=== PATIENT | female | born 1955 | race Caucasian/White ===

== ENCOUNTER 2025-04-10 02:55 | Emergency (ER) | payer MEDICARE, SELFPAY ==
--- OUTSIDE RECORDS SUMMARY | 2025-03-07 13:00 | XMS_ITS | Encounter Summary ---
Author Organization [facility] Health Address [address] [place] [address] Care Team Providers Care Sky Cap Name Role Phone Unavailable Primary Care Provider Unavailabl e Encounter Details Date Type Department Care Team (Late st Contact Info) Description 03/07/2025 11:00 AM [facility] Office Visit [facility] [address] [place] [address] Abimael Booth, JANN [address] [place] [address] Social History Tobacco Use Types Packs/Day Years Used Date Smoking Tobacco: Former Cigarettes Alcohol Use Standard Drinks/Week Comments Yes 0 (1 standard drink = 0.6 oz pur e alcohol) Comments Unknown Sex and Gender Information Value Date Recorded Sex Assigned at Not on file Legal Sex Female 9:53 AM PDT Gender Identity Not on file Sexual Orientation Not on file documented as of this encounter Last Filed Vital Signs Vital Sign Reading Time Taken Comments Blood Pressure 129/79 03/07/2025 11:00 AM MST Pulse 70 03/07/2025 11:00 AM MST Temperature - - Respiratory Rate - - Oxygen Saturation - - Inhaled Oxygen Concentration - - Weight - - Height - - Body Mass Index - - documented in this encounter Progress Notes * Abimael Booth DMD - 03/07/2025 11:00 AM MSTSummary: Limited #9 Mrs. Vang presents for a limited exam for tooth #9. Pt CC: Pt states her filling chipped last week - reports no pain or symptoms. States she is leaving next week for the summer. Radiographs completed, Med Hx reviewed. FINDINGS: Tooth #9: MIDFL resin, chipped IFL resin, tooth, marginal leakage, staining. No PA Lesion. Tooth #8: Large resion, wear / chipped, marginal leakage. No PA lesion ALT TREATMENT OPTIONS: Do nothing Pt is leaving next week Patch resin - guarded due to size of existing resins - will require full coverage restorationism in future Core/crown #8 and #9 Pt elects for tx option and will schedule when she returns in June ARBs discussed / timeline for tx recommended and reviewed. - Mrs. Vang was informed of all clinical and radiographs findings. Treatment recommendations and ARBs discussed with pt. - The pt was informed of the importance of maintaining proper oral hygiene and continuing with recare appointments. - Pt left with all questions answered regarding treatment and in good overall health. NV: Crowns #8 and #9 SIG: Dr. Booth documented in this encounter Plan of Treatment Upcoming Encounters Date Type Department Care Team (Late st Contact Info) Description 07/07/2025 8:30 AM [facility] Office Visit [facility] [address] [facility] [place] [phone] Abimael Booth DMD [address] [facility] [place] [facility] [place] [address] 07/14/2025 1:00 PM [facility] Office Visit [facility] [address] [facility] [place] [phone] [place] [address] [facility] [place] [address] 07/14/2025 1:30 PM MST Office Visit [facility] [address] [facility] [place] [address] Abimael Booth, JANN [address] [facility] [place] [address] Scheduled Orders Name Type Priority Associated Diagnoses Order Schedule 8 8 CERECFIRED CROWN ANT Dental Procedures Routine 1 Occurrences starting 03/07/2025 9 9 CERECFIRED CROWN ANT Dental Procedures Routine 1 Occurrences starting 03/07/2025 8 8 CORE BUILDUP, INCLUDING ANY PINS WHEN REQUIRED Dental Procedures Routine 1 Occurrences starting 03/07/2025 9 9 CORE BUILDUP, INCLUDING ANY PINS WHEN REQUIRED Dental Procedures Routine 1 Occurrences starting 03/07/2025 8 8 CEMENT CROWN Dental Procedures Routine 1 Occurrences starting 03/07/2025 9 9 CEMENT CROWN Dental Procedures Routine 1 Occurrences starting 03/07/2025 NC X-RAY Dental Procedures Routine 1 Occur rences starting 03/07/2025 documented as of this encounter Procedures Procedure Name Priority Date/Time Associated Diagnosis Comments SINGLE X-RAY Routine 03/07/2025 11:00 AM MST LIMITED ORAL EVALUATION - PROBLEM FOCUSED Routine 03/07/2025 11:00 AM MST documented in this encounter Visit Diagnoses Not on filedocumented in this encounter
--- OUTSIDE RECORDS SUMMARY | 2025-04-10 02:57 | XMS_ITS | Encounter Summary ---
Author Organization [facility] Health Address [address] [place] [address] Care Team Providers Care Dispatch Officer Name Role Phone Unavailable Primary Care Provider Unavailabl e Prior Encounters Date Type Department Care Team Description 03/07/2025 11:00 AM [facility] Office Visit [facility] [address] [place] [facility] [place] [address] Abimael Booth DMD 01/03/2025 Travel 01/03/2025 1:30 PM [facility] Office Visit [facility] [address] [place] [facility] [place] [address] Abimael Booth DMD Encounter for dental examination and cleaning without abnormal findings (Primary Dx) 01/03/2025 1:00 PM [facility] Office Visit [facility] [address] [place] [facility] [place] [address] Encounter for dental examination and cleaning without abnormal findings (Primary Dx) 06/28/2024 9:30 AM [facility] Office Visit [facility] [address] [place] [facility] [place] [address] Devin Ballesteros RDH 12/14/2023 12:00 PM [facility] Office Visit [facility] [address] [place] [facility] [place] [address] Sukhjinder Veras DMD Encounter for dental examination and cleaning without abnormal findings (Primary Dx) 12/14/2023 12:00 PM MST Office Visit [facility] [address] [place] [address] Devin Ballesteros, [facility] Encounter for dental examination and cleaning without abnormal findings (Primary Dx) 06/11/2023 9:30 AM MST Office Visit [facility] [address] [place] [address] Neyda Edmond, [facility] 02/19/2023 8:45 AM MST Office Visit [facility] [address] [place] [address] Abimael Booth, [facility] 10/29/2022 3:30 PM MST Office Visit [facility] [address] [place] [address] Abimael Booth, JANN 10/29/2022 Travel 10/29/2022 9:30 AM MST Office Visit [facility] [address] [place] [address] [address] [facility] 06/11/2022 11:15 AM MST Office Visit [facility] [address] [place] [address] Abimael Booth DMD 06/03/2022 12:15 PM MST Office Visit [facility] [address] [place] [address] Abimael Booth DMD 04/16/2022 2:00 PM MST Office Visit [facility] [address] [place] [address] [address] [facility] 10/17/2021 10:00 AM MST Office Visit [facility] [address] [place] [address] [address] [facility] 09/12/2021 Abstract 09/12/2021 Travel 09/12/2021 9:30 AM [facility] Office Visit [facility] [address] [place] [address] Abimael Booth DMD Last Filed Vital Signs Vital Sign Reading Time Taken Comments Blood Pressure 129/79 03/07/2025 11:00 AM [facility] Pulse 70 03/07/2025 11:00 AM [facility] Temperature - - Respiratory Rate - - Oxygen Saturation - - Inhaled Oxygen Concentration - - Weight - - Height - - Body Mass Index - - Plan of Treatment Upcoming Encounters Date Type Department Care Team (Late st Contact Info) Description 07/07/2025 8:30 AM [facility] Office Visit [facility] [address] [place] [address] Abimael Booth DMD [address] [place] [facility] [place] [address] 07/14/2025 1:00 PM [facility] Office Visit [facility] [address] [place] [facility] [place] [address] [facility] [address] [place] [facility] [place] [address] 07/14/2025 1:30 PM [facility] Office Visit [facility] [address] [place] [facility] [place] [address] Abimael Booth DMD [address] [place] [facility] [place] [address] Procedures Procedure Name Priority Date/Time Associated Diagnosis Comments SINGLE X-RAY Routine 03/07/2025 11:00 AM [facility] LIMITED ORAL EVALUATION - PROBLEM FOCUSED Routine 03/07/2025 11:00 AM [facility] BITEWINGS - FOUR RADIOGRAPHIC IMAGES Routine 01/03/2025 1:30 PM [facility] PERIODIC ORAL EVALUATION - ESTABLISHED PATIENT Routine 01/03/2025 1:30 PM [facility] Encounter for dental examination and cleaning without abnormal findings PROPHYLAXIS - ADULT Routine 01/03/2025 1 :00 PM MST Encounter for dental examination and cleaning without abnormal findings ORAL HYGIENE INSTRUCTIONS Routine 2024 1:00 PM MST TOPICAL APPLICATION OF FLUORIDE VARNISH Routine 06/28/2024 9:30 AM MST ORAL HYGIENE INSTRUCTIONS Routine 2023 9:30 AM MST BITEWINGS - FOUR RADIOGRAPHIC IMAGES Routine 12/14/2023 12:00 PM MST PERIODIC ORAL EVALUATION - ESTABLISHED PATIENT Routine 12/14/2023 12:00 PM MST Encounter for dental examination and cleaning without abnormal findings ORAL HYGIENE INSTRUCTIONS Routine 2023 12:00 PM MST Encounter for dental examination and cleaning without abnormal findings PROPHYLAXIS - ADULT Routine 12/14/2023 1 2:00 PM MST Encounter for dental examination and cleaning without abnormal findings UR ANTIBACT IRR/QUAD Routine 06/11/2023 1:00 PM MST UL ANTIBACT IRR/QUAD Routine 06/11/2023 1:00 PM MST LR ANTIBACT IRR/QUAD Routine 06/11/2023 1:00 PM MST LL ANTIBACT IRR/QUAD Routine 06/11/2023 1:00 PM MST LR PERIODONTAL SCALING AND ROOT PLANING - ONE TO THREE TEETH PER QUADRANT Routine 06/11/2023 1:00 PM MST ORAL HYGIENE INSTRUCTIONS Routine 2022 1:00 PM MST PROPHYLAXIS - ADULT Routine 06/11/2023 1 :00 PM MST 10 MFL RESIN-BASED COMPOSITE - THREE SURFACES, ANTERIOR Routine 02/19/2023 8:45 AM MST LIMITED ORAL EVALUATION - PROBLEM FOCUSED Routine 02/19/2023 8:45 AM MST SINGLE X-RAY Routine 02/19/2023 8:45 AM [facility] PERIODIC ORAL EVALUATION - ESTABLISHED PATIENT Routine 10/29/2022 3:30 PM MST BITEWINGS - FOUR RADIOGRAPHIC IMAGES Routine 10/29/2022 3:30 PM MST ORAL HYGIENE INSTRUCTIONS Routine 2022 9:30 AM MST TOPICAL APPLICATION OF FLUORIDE VARNISH Routine 10/29/2022 9:30 AM MST PROPHYLAXIS - ADULT Routine 10/29/2022 9 :30 AM MST 15 O RESIN-BASED COMPOSITE - ONE SURFACE, POSTERIOR Routine 06/11/2022 11:15 AM MST BITEWING - SINGLE RADIOGRAPHIC IMAGE Routine 06/03/2022 12:15 PM MST SINGLE X-RAY Routine 06/03/2022 12:15 PM MST LIMITED ORAL EVALUATION - PROBLEM FOCUSED Routine 06/03/2022 12:15 PM MST ORAL HYGIENE INSTRUCTIONS Routine 2021 2:00 PM MST PROPHYLAXIS - ADULT Routine 04/16/2022 2 :00 PM [facility] UL ANTIBACT IRR/QUAD Routine 10/17/2021 10:00 AM MST UR ANTIBACT IRR/QUAD Routine 10/17/2021 10:00 AM MST LR ANTIBACT IRR/QUAD Routine 10/17/2021 10:00 AM MST LL ANTIBACT IRR/QUAD Routine 10/17/2021 10:00 AM MST ORAL HYGIENE INSTRUCTIONS Routine 2021 10:00 AM MST PROPHYLAXIS - ADULT Routine 10/17/2021 1 0:00 AM MST PANORAMIC RADIOGRAPHIC IMAGE Routine 09/12/2021 9:30 AM MST INTRAORAL - COMPREHENSIVE SERIES OF RADIOGRAPHIC IMAGES Routine 09/12/2021 9:30 AM [facility] COMPREHENSIVE ORAL EVALUATION - NEW OR ESTABLISHED PATIENT Routine 09/12/2021 9:30 AM MST 19 ABUTMENT Routine 09/12/2021 12:00 AM MST 21 ABUTMENT Routine 09/12/2021 12:00 AM MST 20 PONTIC Routine 09/12/2021 12:00 AM MST 30 PFM CROWN Routine 09/12/2021 12:00 AM MST 29 PFM CROWN Routine 09/12/2021 12:00 AM MST 28 DO AMALGAM FILLING Routine 09/12/2021 12:00 AM MST 25 MIFL COMPOSITE FILLING Routine 2020 12:00 AM MST 24 DIFL COMPOSITE FILLING Routine 2020 12:00 AM MST 8 MFL COMPOSITE FILLING Routine 09/12/20 21 12:00 AM MST 13 CEREC CROWN Routine 09/12/2021 12:00 AM MST 15 PFM CROWN Routine 09/12/2021 12:00 AM MST 14 PFM CROWN Routine 09/12/2021 12:00 AM MST 12 PFM CROWN Routine 09/12/2021 12:00 AM MST 9 MDL COMPOSITE FILLING Routine 09/12/20 12:00 AM MST 10 ML COMPOSITE FILLING Routine 09/12/20 12:00 AM MST 5 CEREC CROWN Routine 09/12/2021 12:00 AM MST 2 PFM CROWN Routine 09/12/2021 12:00 AM MST 18 PFM CROWN Routine 09/12/2021 12:00 AM MST 31 PFM CROWN Routine 09/12/2021 12:00 AM MST 4 PFM CROWN Routine 09/12/2021 12:00 AM MST 3 PFM CROWN Routine 09/12/2021 12:00 AM MST Visit Diagnoses Diagnosis Start Date Encounter for dental examination and cleaning without abnormal findings 12/14/2023 Encounter for dental examination and cleaning without abnormal findings 12/14/2023 Encounter for dental examination and cleaning without abnormal findings 01/03/2025 Encounter for dental examination and cleaning without abnormal findings 01/03/2025 Insurance [employer] [facility]
--- OUTSIDE RECORDS SUMMARY | 2025-04-10 02:57 | XMS_ITS | Clinical Summary ---
Author Organization [facility] r Address [address] [place] [address] Care Team Providers Care Loss Control Manager Name Role Phone Di Doss MD Primary Care Provide r Allergies No known active allergies Medications Simvastatin (ZOCOR) 20 MG tablet 3 Active tolterodine (DETROL) 2 MG tablet 3 Active methylPREDNISol one (MEDROL) 4 MG tablet follow package directions 1 each 3 Active Active Problems Problem Noted Date Diagnosed Date Injury of plantar plate 06/18/2017 Overview (06/18/2017): Added automatically from request for surgery [id number] Social History Tobacco Use Types Packs/Day Years Used Date Smoking Tobacco: Former Cigarettes 0 10/22/1985 - 10/22/2000 Smokeless Tobacco: Never Tobacco Cessation:Counseling Given: Yes Alcohol Use Standard Drinks/Week Comments Yes 0 (1 standard drink = 0.6 oz pur e alcohol) social Utilities Answer Date Recorded In the past 12 months has e [employer], gas, oil, or water [employer] threatened to shut off services in your home? No 06/17/2023 Humiliation, Afraid, Rape, and Kick questionnair e Answer Date Recorded Within the last year, have y ou been afraid of your partner or ex-partner? No 06/17/2023 Within the last year, have y ou been humiliated or emotionally abused in other ways by your partner or ex-partner? No Within the last year, have y ou been kicked, hit, slapped, or otherwise physically hurt by your partner or ex-partner? No 06/17/2023 Within the last year, have y ou been raped or forced to have any kind of sexual activity by your partner or ex-partner? No 06/17/2023 Social Connection and Isolat ion Panel [NHANES] Answer Date Recorded In a typical week, how many times do you talk on the phone with family, friends, or neighbors? More than three times a week 06/17/2023 How often do you get togethe r with friends or relatives? More than three times a week 06/17/2023 Attends [employer] Not on file 06/17 Do you belong to any clubs o r organizations such as confucianist groups, unions, fraternal or athletic groups, or school groups? Yes 06/17/2023 How often do you attend meet ings of the clubs or organizations you belong to? More than 4 times per year 06/17/2023 Marital Status Not on file 06/17/2023 Overall Financial Resource Strain (CARDIA) Answe r Date Recorded How hard is it for you to pa y for the very basics like food, housing, medical care, and heating? Not very hard 06/17/2023 Hunger Vital Sign Answer Date Recorded Within the past 12 months, y ou worried that your food would run out before you got the money to buy more. Never true 06/17/20 23 Within the past 12 months, t he food you bought just didn't last and you didn't have money to get more. Never true 06/17/2023 PRAPARE - Transportation Answer Date Re corded In the past 12 months, has l ack of transportation kept you from medical appointments or from getting medications? No 03/2023 In the past 12 months, has l ack of transportation kept you from meetings, work, or from getting things needed for daily living? No 06/17/2023 Housing Stability Vital Sign Answer Narendra e Recorded In the last 12 months, was t here a time when you were not able to pay the mortgage or rent on time? No 06/17/2023 Number of Places Lived in the Last Year Not on f ile 06/17/2023 In the last 12 months, was t here a time when you did not have a steady place to sleep or slept in a fdc (including now)? No 06/17/2023 Domestic Violence Screen Answer Date Re corded Physical Abuse Risk Unknown 11/29/2023 Verbal Abuse Risk Unknown 11/29/2023 Comments No Sex and Gender Information Value Date Recorded Sex Assigned at Female 06/17/2023 7:39 AM [facility] Legal Sex Female 2:49 PM MST Gender Identity Female 06/17/2023 7:39 AM MST Sexual Orientation Not on file Last Filed Vital Signs Vital Sign Reading Time Taken Comments Blood Pressure 126/78 06/25/2017 5:45 PM MST Pulse 60 06/25/2017 5:45 PM MST Temperature 36.2 C (97.2 F) 06/25/2017 4:47 PM MST Respiratory Rate 19 06/25/2017 5:45 PM MST Oxygen Saturation 96% 06/25/2017 5:45 PM MST Inhaled Oxygen Concentration - - Weight 93 kg (205 lb) 07/20/2023 8:32 AM MST Height 167.6 cm (5' 6) 07/20/2023 8:32 AM MST Body Mass Index 33.09 07/20/2023 8:32 AM [facility] Plan of Treatment Health Maintenance Due Date Last Done Comments Colon Cancer Screening: CT 01/13/2001 Colon Cancer Screening: Cologuard 01/13/2001 Colon Cancer Screening: FOBT 01/13/2001 Colon Cancer Screening: Flexible Sigmoidoscopy 01/13/2001 Pneumococcal 50+ (1 of 1 - PCV) 01/13/2006 Zoster (1 of 2) 01/13/2006 Screening for Future Fall Risk 01/13/2021 COVID-19 Vaccine ( season) 2024 12/21/2020 Breast Cancer Screening 08/17/2024 08/17/20 22 (Previously completed) Depression Screening 10/12/2024 Influenza (Season Ended) 05/12/202508/28/ 022, 09/02/2021, 08/19/2020, Additional history exists RSV Vaccines (1 - 1-dose 75+ series) 01/13/2031 Colon Cancer Screening: Colonoscopy 08/17/2031 08/17/2021 (Previously completed) Colon Cancer Screening 08/17/2031 Hepatitis A Aged Out No longer eligi ble based on patient's age to complete this topic Hepatitis B Aged Out No longer eligi ble based on patient's age to complete this topic Medical Devices Implanted Type Area Brand Marketing Coordinator Device Identifier Shelf Expiration Date Model / Serial / Lot Screw Bn Micro Acutrak2 12mm #[id number] - [id number] Implanted:Qty: 1 on 06/25/2017 by Guerrero Colon MD at [facility] [place] Left: [employer] [id number]-[id number] / / [id number] Insurance [facility] MEDIC[facility] SOLUTIONS Advance Directives For more information, please contact: [phone] * Full Code (Latest Code Status on File) Date Activated Date Inactivated Comments 06/25/2017 12:48 PM 06/25/2017 8:04 PM Care Teams Loss Control Manager Relationship Specialty [place] [id number] [facility] [address] [place] [id number] PCP - General 06/16/23
--- OUTSIDE RECORDS SUMMARY | 2025-04-10 02:57 | XMS_ITS | Data Portability ---
Author Organization [place] - [facility] - [facility], [facility], [facility] Address [address] [place] [address] Care Team Providers Care Precipitator Operator Name Role Phone STERLING AMOS Primary Care Provider STERLING AMOS Referring Provider Assessment Encounter Date Assessment Date Assessment LastModified by Organization Details LastModified Time 07/25/2024 07/25/2024 Time Spent: Alcohol screening 5 minutes, and counseling (if performed): 10 minutes. Depression screening 1 minutes, and counseling (if performed): 1 minutes. Falls: Number of falls in the past year: 0 [email or web address] Not available 07/25/2024 10:54:00 Plan of Treatment Reminders Order Date Submit Date Provider Last Modified By Organization Details Last Modified Time Details Appointments *[facility] 30 2024 07:30A Truong AMOS M.D. Not available Not available Not available Lab CBC w/ auto diff [address] [facility], [address] [place], [address], 10/03/2024 13:30:16 BMP, serum or plasma [address] [facility], [address] [place], [address], 10/03/2024 13:37:55 urinalys is, dipstick , reflex micro [address], [address] [place], [address], 10/18/2024 11:28:54 PT/PTT, plasma [address], [address] [place], [address], 10/18/2024 11:29:07 CMP, serum or plasma [address], [address] [place], [address], 08/01/2024 12:23:53 CBC w/ auto diff [address], [address] [place], [address], 08/01/2024 12:23:53 lipid panel, serum [address], [address] [place], [address], 08/01/2024 12:23:54 Referral None recorded . Procedures None recorded . Surgeries trigger finger release (SURG) [address] (Surgery Only), [address] [place], [address], 11/11/2024 10:23:28 Imaging electroc ardiogra m, routine ECG, 12 leads min 2023 024 [email or web address] 4 [facility], [address] [place], [address], 09/20/2024 12:34:13 MAMMO, screenin g, tomosynt hesis, bilatera l 2023 024 [facility] [address], [address], [address], [place], [address], 09/12/2024 12:31:43 DEXA, axial skeleton 2023 024 [facility] [address], [address], [address], [place], [address], 09/07/2024 17:24:08 Medication Orders amoxicil gabrielle 875 mg tablet 2023 024 [facility] [id number], [address] [place], [address], 12/24/2023 18:36:09 fluticas one propiona te 50 mcg/actu ation nasal spray,lopez spension 2023 024 [facility] [id number], [address] [place], [address], 12/24/2023 18:36:06 Patient TargetsNo targets recorded. Patient Instructions Encounter Date Encounter Id Patient Instructions Last Modified By Organization Details Last Modified Time 12/24/2023 [id number] When You Want to Lose Weight: Care Instructions Not available 12/24/2023 18:36:02 eating healthy foods: care instructions Not available 12/24/2023 18:36:02 Right otitis med ia: Amoxicillin prescribed, encouraged take with food intake until fully completed. Flonase was also prescribed, use and side effects were discussed. Not available 12/24/2023 18:37:35 07/25/2024 [id number] fall risk screening* [email or web address] Not avai lable 07/25/2024 10:58:03 alcohol use disorders identification test* [email or web address] Not available 07/25/2024 10:58:03 geriatric depres leonila screen* ssparkes Not available 07/25/2024 10:58:03 advance directiv es: care instructions [email or web address] Not available 07/25/2024 10:58:03 advance directiv e education [email or web address] Not available 07/25/2024 10:58:04 multi-dimensiona l health assessment questionnaire* [email or web address] Not available 07/25/2024 10:58:03 hearing loss: ca re instructions [email or web address] Not available 07/25/2024 10:58:03 heart-healthy di et: care instructions [email or web address] Not available 07/25/2024 10:58:03 dash diet: care instructions [email or web address] Not available 07/25/2024 10:58:04 preventing falls : care instructions [email or web address] Not available 07/25/2024 10:58:03 high cholesterol : care instructions ssparkes Not available 07/25/2024 10:58:03 Personalized Hea lth Plan and Screening Recommendations Advance Directives - Do you have one? Yes Advance Directives - Do we have your advance directive on file in your health record? No, please bring in a copy at your earliest convenience Primary Prevention/Intervent ion (prevents or decreases the chance of common diseases from occurring) Tobacco/Nicotine Risk: Former Smoker quit 2000. Alcohol Misuse Screening: High risk Decrease alcohol intake to 1 or less servings per day Weight: Overweight try to lose 5% of your body weight Physical activity: Maintain appropriate physical activity minimum of 20-30 minutes activity that causes mild breathlessness/day Nutrition: Average Refer to handout Heart-Healthy Diet: Care Instructions Fall Risk (screened today): Low risk Vaccines Influenza: Your next one in the fall of this year Pneumococcal: Series completed Shingles: Series completed COVID-19: Series completed Respiratory Syncytial Virus (RSV): Recommended. There may be an out of pocket cost for preventive services Tetanus: Due: 2032 Hepatitis B: Not indicated Secondary Prevention/Intervent ion (detects treatable diseases before they may cause symptoms, disability, or ) Breast Cancer Screening with mammogram: Your next mammogram: 08/2024 Cervical Cancer Screening: No screening necessary Osteoporosis Screening: Recommended Colon Cancer Screening: Colonoscopy Due: 2024 Eye Disease Screening: Per your eye care provider Hearing Screening: Recommended Depression Screening: Low risk Cognitive Screening: Normal Stay mentally and physically active Diabetes Screening: Performed/Ordered today Cardiovascular Disease (CVD) Screening: labs - Performed/Ordered today Abdominal Aortic Aneurysm (AAA) Screening: Not indicated Lung Cancer Screening: Not indicated Hepatitis/Sexually Transmitted Infection (STI)/Human Immunodeficiency Virus (HIV) Screenings: You are not at increased risk, testing is not indicated today Tertiary Prevention/Intervent ion (identifies your current known diseases and attempts to prevent complications of those diseases) Complications of many of these diseases can be minimized through the primary prevention/intervent ions listed above but some may require medication addition/change or referrals and will be addressed today or at a follow-up appointment Pain Control Status: no pain or pain under adequate control Pain Medication Use and Risk for Opioid Misuse: You do not use addictive opioid medications, and therefore are not at risk Pain Management Plan: N/A [email or web address] Not available 07/25/2024 12:32:22 Provider Scribe Attestation: Scribe Attestation: I, Sue Doty, attest that I personally scribed for clinician Dr. Amos and that the documentation in the clinical portion of the chart was captured in collaboration with Dr. Amos on 07/25/2024. Clinician Attestation: All medical record entries made by the Scribe were at my direction and personally dictated by me. I have reviewed the chart and agree that the record accurately reflects my personal performance of the history, physical exam, assessment and plan. I have also personally directed, reviewed, and agree with the discharge instructions. ju Not available 07/25/2024 11:59:45 Reason for Referral None Reported. Results Created Date Observation Date Name Description Value Unit Range Abnormal Flag Note LastModifiedBy Organization Detail LastModifiedTime 08/16/20 24 08/16/2024 CBCDA WBC 4.8 x10 4.8-10 .8 Not Available [facility] ([facility]) [address], [address], 08/16/2024 10:25:06 08/16/20 24 08/16/2024 CBCDA RBC 4.40 x10 3.80-5 .20 Not Available [facility] ([facility]) [address] [facility] [place], [address], 08/16/2024 10:25:06 08/16/20 24 08/16/2024 CBCDA HGB 14.6 g/dL 11.7-1 4.5 high Not Available [facility] ([facility]) [address] [facility], [place], [address], 08/16/2024 10:25:06 08/16/20 24 08/16/2024 CBCDA HCT 43.4 % 35.0-4 7.0 Not Available [facility] ([facility]) [address] [facility], [place], [address], 08/16/2024 10:25:06 08/16/20 24 08/16/2024 CBCDA MCV 98.6 fL 81.0-9 9.0 Not Available [facility] ([facility]) [address] [facility], [place], [address], 08/16/2024 10:25:06 08/16/20 24 08/16/2024 CBCDA MCH 33.2 pg 27.0-3 5.0 Not Available [facility] ([facility]) [address] [facility], [place], [address], 08/16/2024 10:25:06 08/16/20 24 08/16/2024 CBCDA MCHC 33.6 g/dL 32.0-3 6.0 Not Available [facility]) [address] [facility] [place], [address], 08/16/2024 10:25:06 08/16/20 24 08/16/2024 CBCDA RDW 11.5 % 11.5-1 4.5 Not Available [facility] ([facility]) [address] [place], [address], 08/16/2024 10:25:06 08/16/20 24 08/16/2024 CBCDA plt cnt 137 x10 140-44 0 low Not Available [facility] ([facility]) [address] [place], [address], 08/16/2024 10:25:06 08/16/20 24 08/16/2024 CBCDA MPV 10.1 fL 9.0-13 .0 Perfo rmed at: [address] [address] [facility] , [place] [address] Not Available [facility] ([facility]) [address] [place], [address], 08/16/2024 10:25:06 08/16/20 24 08/16/2024 .DIFF AUTO neutrophils% auto 60.3 % 50.0-7 0.0 Not Available [facility] ([facility]) [address] [place], [address], 08/16/2024 10:25:08 08/16/20 24 08/16/2024 .DIFF AUTO lymphocytes% auto 24.5 % 20.0-4 0.0 Not Available [facility] ([facility]) [address] [place], [address], 08/16/2024 10:25:08 08/16/20 24 08/16/2024 .DIFF AUTO monocytes% auto 9.4 % 3.5-10 .7 Not Available [facility] ([facility]) [address] [place], [address], 08/16/2024 10:25:08 08/16/20 24 08/16/2024 .DIFF AUTO eosinophils% auto 4.6 % 0.0-6. 0 Not Available [facility] ([facility]) [address] [place], [address], 08/16/2024 10:25:08 08/16/20 24 08/16/2024 .DIFF AUTO basophils% auto 1.0 % 0.0-2. 0 Not Available [facility] ([facility]) [address] [place], [address], 08/16/2024 10:25:08 08/16/20 24 08/16/2024 .DIFF AUTO neutrophils# auto 2.9 x10 1.4-6. 5 Not Available [facility] ([facility]) [address] [place], [address], 08/16/2024 10:25:08 08/16/20 24 08/16/2024 .DIFF AUTO lymphocytes# auto 1.2 x10 1.3-3. 4 low Not Available [facility] ([facility]) [address] [place], [address], 08/16/2024 10:25:08 08/16/20 24 08/16/2024 .DIFF AUTO monocytes# auto 0.4 x10 0.2-0. 9 Not Available [facility] ([facility]) [address] [place], [address], 08/16/2024 10:25:08 08/16/20 24 08/16/2024 .DIFF AUTO eos# auto 0.2 x10 0.0-1. 5 Not Available [facility] ([facility]) [address] [place], [address], 08/16/2024 10:25:08 08/16/20 24 08/16/2024 .DIFF AUTO basophils# auto 0.0 x10 0.0-0. 2 Not Available [facility] ([facility]) [address] [place], [address], 08/16/2024 10:25:08 08/16/20 24 08/16/2024 .DIFF AUTO immature granulocytes % auto 0.2 % <=1.0 Not Available [facility] (Central Scheduling) [address] [place], [address], 08/16/2024 10:25:08 08/16/20 24 08/16/2024 .DIFF AUTO immature granulocytes # auto 0 x10 Perfo rmed at: [address] [facility], , [place] [address] Not Available [facility] ([facility]) [address] [facility], [place], [address], 08/16/2024 10:25:08 08/16/20 24 08/16/2024 CMP eGFR 87 mL/mi n/1.7 3MA? >=90 low CKD is defin ed by the prese nce of glome rular filtr ation rate (GFR) <60 mL for >3 month s and/o r evide nce of kidne y damag e (eg, struc tural abnor malit ies, histo logic abnor malit ies, album inuri a, urina ry sedim ent abnor malit ies, renal tubul ar disor ders, and/o r histo ry of kidne y trans plant ation ) for >3mon ths. This table provi patrick inter preta tion of speci fic eGFR value s. Creat inine measu remen ts, and there fore eGFR calcu latio ns, are affec alvarado by very high or very low muscl e mass, muscl e injur y, a diet very high in meat, hepat ic cirrh osis, certa in drugs , etc. Stage s of CKD: Stage Descr iptio n GFR mL/mi n 1 Kidne y damag e with laine l or incre ased GFR 90 2 Kidne y damag e with mild decre ase in GFR 60 to 89 3 Moder ate decre ase in GFR 30 to 59 4 Sever e decre ase in GFR 15 to 29 5 Kidne y failu re <15 (or dialy sis) Note: GFR Laine l range >60, equat ion not valid ated for ages <18 and >70 and pregn ant women . Not Available [facility] ([facility]) [address] [facility], [place], [address], 08/16/2024 11:01:16 08/16/20 24 08/16/2024 CMP glucose 99 mg/dL 70-106 Not Availabl e [facility] ([facility]) [address], [place], [address], 08/16/2024 11:01:16 08/16/20 24 08/16/2024 CMP BUN 11 mg/dL 7-18 Not Available [facility] ([facility]) [address], [place], [address], 08/16/2024 11:01:16 08/16/20 24 08/16/2024 CMP creatinine 0.75 mg/dL 0.60-1 .30 Not Available [facility] ([facility]) [address], [place], [address], 08/16/2024 11:01:16 08/16/20 24 08/16/2024 CMP BUN/crea ratio 14.7 Not Available [facility] (Central Scheduling) [address], [place], [address], 08/16/2024 11:01:16 08/16/20 24 08/16/2024 CMP sodium 137 mEq/L 136-14 5 Not Available [facility] ([facility]) [address], [place], [address], 08/16/2024 11:01:16 08/16/20 24 08/16/2024 CMP potassium 4.2 mEq/L 3.7-5. 9 Not Available [facility] ([facility]) [address], [place], [address], 08/16/2024 11:01:16 08/16/20 24 08/16/2024 CMP chloride 104 mEq/L 98-107 Not Availab le [facility] ([facility]) [address], [place], [address], 08/16/2024 11:01:16 08/16/20 24 08/16/2024 CMP carbon dioxide 26 mEq/L 21-32 Not Available [facility] ([facility]) [address], [place], [address], 08/16/2024 11:01:16 08/16/20 24 08/16/2024 CMP calcium 9.3 mg/dL 8.5-10 .6 Not Available [facility] ([facility]) [address], [place], [address], 08/16/2024 11:01:16 08/16/20 24 08/16/2024 CMP Ca corrected 9.5 mg/dL 8.5-10 .6 Not Available [facility] ([facility]) [address], [place], [address], 08/16/2024 11:01:16 08/16/20 24 08/16/2024 CMP prot total 6.9 g/dL 6.4-8. 2 Not Available [facility] ([facility]) [address], [place], [address], 08/16/2024 11:01:16 08/16/20 24 08/16/2024 CMP albumin 3.7 g/dL 3.4-5. 0 Not Available [facility] ([facility]) [address], [place], [address], 08/16/2024 11:01:16 08/16/20 24 08/16/2024 CMP globulin 3.2 g/dL 2.3-3. 5 Not Available [facility] ([facility]) [address], [place], [address], 08/16/2024 11:01:16 08/16/20 24 08/16/2024 CMP albumin/glob ulin ratio 1.2 ratio Not Available [facility] (Central Scheduling) [address], [place], [address], 08/16/2024 11:01:16 08/16/20 24 08/16/2024 CMP anion gap 11.2 mEq/L 8.0-16 .0 Not Available [facility] ([facility]) [address], [place], [address], 08/16/2024 11:01:16 08/16/20 24 08/16/2024 CMP alkaline phosphatase 88 unit/ L 45-117 Not Available [facility] ([facility]) [address], [place], [address], 08/16/2024 11:01:16 08/16/20 24 08/16/2024 CMP AST 37 unit/ L 15-37 Not Available [facility] ([facility]) [address], [place], [address], 08/16/2024 11:01:16 08/16/20 24 08/16/2024 CMP ALT 61 unit/ L 14-59 high Not Available [facility] ([facility]) [address], [place], [address], 08/16/2024 11:01:16 08/16/20 24 08/16/2024 CMP bili total 0.4 mg/dL 0.2-1. 0 Not Available [facility] ([facility]) [address], [place], [address], 08/16/2024 11:01:16 08/16/20 24 08/16/2024 CMP hil 111 111-11 1 Perfo rmed at: [address], , [place] [address] Not Available [facility] ([facility]) [address], [place], [address], 08/16/2024 11:01:16 08/16/20 24 08/16/2024 LIPID cholesterol 203 mg/dL 50-200 high Not Avai lable [facility] ([facility]) [address], [place], [address], 08/16/2024 13:16:38 08/16/20 24 08/16/2024 LIPID triglyceride s 97 mg/dL 2-150 Not Available [facility] ([facility]) [address], [place], [address], 08/16/2024 13:16:38 08/16/20 24 08/16/2024 LIPID lipoprotein HDL 66 mg/dL 40-80 Not Available [facility] ([facility]uling) [address], [place], [address], 08/16/2024 13:16:38 08/16/20 24 08/16/2024 LIPID LDL calculation 118 mg/dL <=100 high NOTE: The LDL Amie stero l may be inval idate d by the prese nce of chylo micro ns, trigl yceri de level great er than 400 mg/dL , or Type III Hyper lipop rotei nemia . Not Available [facility] ([facility]) [address], [place], [address], 08/16/2024 13:16:38 08/16/20 24 08/16/2024 LIPID chol/HDL ratio 3 ratio Perfo rmed at: [facility], [address], [place] [address] Not Available [facility] ([facility]) [address], [place], [address], 08/16/2024 13:16:38 10/03/20 24 10/03/2024 CBCDA WBC 4.3 x10 4.8-10 .8 low Not Available [facility] ([facility]) [address], [place], [address], 10/03/2024 13:30:18 10/03/20 24 10/03/2024 CBCDA RBC 4.31 x10 3.80-5 .20 Not Available [facility] ([facility]) [address], [place], [address], 10/03/2024 13:30:18 10/03/20 24 10/03/2024 CBCDA HGB 14.3 g/dL 11.7-1 4.5 Not Available [facility] ([facility]) [address], [place], [address], 10/03/2024 13:30:18 10/03/20 24 10/03/2024 CBCDA HCT 41.6 % 35.0-4 7.0 Not Available [facility] ([facility]) [address], [place], [address], 10/03/2024 13:30:18 10/03/20 24 10/03/2024 CBCDA MCV 96.5 fL 81.0-9 9.0 Not Available [facility] ([facility]) [address], [place], [address], 10/03/2024 13:30:18 10/03/20 24 10/03/2024 CBCDA MCH 33.2 pg 27.0-3 5.0 Not Available [facility] ([facility]) [address], [place], [address], 10/03/2024 13:30:18 10/03/20 24 10/03/2024 CBCDA MCHC 34.4 g/dL 32.0-3 6.0 Not Available [facility] ([facility]) [address], [place], [address], 10/03/2024 13:30:18 10/03/20 24 10/03/2024 CBCDA RDW 11.9 % 11.5-1 4.5 Not Available [facility] ([facility]) [address], [place], [address], 10/03/2024 13:30:18 10/03/20 24 10/03/2024 CBCDA plt cnt 149 x10 140-44 0 Not Available [facility] ([facility]) [address], [place], [address], 10/03/2024 13:30:18 10/03/20 24 10/03/2024 CBCDA MPV 9.9 fL 9.0-13 .0 Perfo rmed at: [address], , [place] [address] Not Available [facility] ([facility]) [address], [place], [address], 10/03/2024 13:30:18 10/03/20 24 10/03/2024 CBCDA WBC 4.3 x10 4.8-10 .8 low Not Available [facility] ([facility]) [address], [place], [address], 10/03/2024 13:30:16 10/03/20 24 10/03/2024 CBCDA RBC 4.31 x10 3.80-5 .20 Not Available [facility] ([facility]) [address], [place], [address], 10/03/2024 13:30:16 10/03/20 24 10/03/2024 CBCDA HGB 14.3 g/dL 11.7-1 4.5 Not Available [facility] ([facility]) [address], [place], [address], 10/03/2024 13:30:16 10/03/20 24 10/03/2024 CBCDA HCT 41.6 % 35.0-4 7.0 Not Available [facility] ([facility]) [address], [place], [address], 10/03/2024 13:30:16 10/03/20 24 10/03/2024 CBCDA MCV 96.5 fL 81.0-9 9.0 Not Available [facility] ([facility]) [address] [place], [address], 10/03/2024 13:30:16 10/03/20 24 10/03/2024 CBCDA MCH 33.2 pg 27.0-3 5.0 Not Available [facility] ([facility]) [address] [facility], [place], [address], 10/03/2024 13:30:16 10/03/20 24 10/03/2024 CBCDA MCHC 34.4 g/dL 32.0-3 6.0 Not Available [facility] ([facility]) [address] [facility], [place], [address], 10/03/2024 13:30:16 10/03/20 24 10/03/2024 CBCDA RDW 11.9 % 11.5-1 4.5 Not Available [facility] ([facility]) [address] [facility], [place], [address], 10/03/2024 13:30:16 10/03/20 24 10/03/2024 CBCDA plt cnt 149 x10 140-44 0 Not Available [facility] ([facility]) [address] [facility], [place], [address], 10/03/2024 13:30:16 10/03/20 24 10/03/2024 CBCDA MPV 9.9 fL 9.0-13 .0 Perfo rmed at: [address] [facility], , [place] [address] Not Available [facility] ([facility]) [address] [facility], [place], [address], 10/03/2024 13:30:16 10/03/20 24 10/03/2024 .DIFF AUTO neutrophils% auto 59.1 % 50.0-7 0.0 Not Available [facility] ([facility]) [address] [place], [address], 10/03/2024 13:30:21 10/03/20 24 10/03/2024 .DIFF AUTO lymphocytes% auto 26.7 % 20.0-4 0.0 Not Available [facility] ([facility]) [address] [place], [address], 10/03/2024 13:30:21 10/03/20 24 10/03/2024 .DIFF AUTO monocytes% auto 8.4 % 3.5-10 .7 Not Available [facility] ([facility]) [address] [place], [address], 10/03/2024 13:30:21 10/03/20 24 10/03/2024 .DIFF AUTO eosinophils% auto 4.9 % 0.0-6. 0 Not Available [facility] ([facility]) [address] [place], [address], 10/03/2024 13:30:21 10/03/20 24 10/03/2024 .DIFF AUTO basophils% auto 0.7 % 0.0-2. 0 Not Available [facility] ([facility]) [address] [place], [address], 10/03/2024 13:30:21 10/03/20 24 10/03/2024 .DIFF AUTO neutrophils# auto 2.5 x10 1.4-6. 5 Not Available [facility] ([facility]) [address] [place], [address], 10/03/2024 13:30:21 10/03/20 24 10/03/2024 .DIFF AUTO lymphocytes# auto 1.2 x10 1.3-3. 4 low Not Available [facility] ([facility]) [address] [place], [address], 10/03/2024 13:30:21 10/03/20 24 10/03/2024 .DIFF AUTO monocytes# auto 0.4 x10 0.2-0. 9 Not Available [facility]) [address] [place], [address], 10/03/2024 13:30:21 10/03/20 24 10/03/2024 .DIFF AUTO eos# auto 0.2 x10 0.0-1. 5 Not Available [facility] ([facility]) [address] [place], [address], 10/03/2024 13:30:21 10/03/20 24 10/03/2024 .DIFF AUTO basophils# auto 0.0 x10 0.0-0. 2 Not Available [facility]) [address] [place], [address], 10/03/2024 13:30:21 10/03/20 24 10/03/2024 .DIFF AUTO immature granulocytes % auto 0.2 % <=1.0 Not Available [facility] ([facility] Scheduling) [address] [place], [address], 10/03/2024 13:30:21 10/03/20 24 10/03/2024 .DIFF AUTO immature granulocytes # auto 0 x10 Perfo rmed at: [address] [facility], , [place] [address] Not Available [facility] ([facility]) [address] [place], [address], 10/03/2024 13:30:21 10/03/20 24 10/03/2024 .DIFF AUTO neutrophils% auto 59.1 % 50.0-7 0.0 Not Available [facility] ([facility]) [address] [place], [address], 10/03/2024 13:30:20 10/03/20 24 10/03/2024 .DIFF AUTO lymphocytes% auto 26.7 % 20.0-4 0.0 Not Available [facility] (Central Scheduling) [address] [place], [address], 10/03/2024 13:30:20 10/03/20 24 10/03/2024 .DIFF AUTO monocytes% auto 8.4 % 3.5-10 .7 Not Available [facility] (Central Scheduling) [address] [place], [address], 10/03/2024 13:30:20 10/03/20 24 10/03/2024 .DIFF AUTO eosinophils% auto 4.9 % 0.0-6. 0 Not Available [facility] (Central Scheduling) [address] [place], [address], 10/03/2024 13:30:20 10/03/20 24 10/03/2024 .DIFF AUTO basophils% auto 0.7 % 0.0-2. 0 Not Available [facility] (Central Scheduling) [address] [place], [address], 10/03/2024 13:30:20 10/03/20 24 10/03/2024 .DIFF AUTO neutrophils# auto 2.5 x10 1.4-6. 5 Not Available [facility] (Central Scheduling) [address] [place], [address], 10/03/2024 13:30:20 10/03/20 24 10/03/2024 .DIFF AUTO lymphocytes# auto 1.2 x10 1.3-3. 4 low Not Available [facility] (Central Scheduling) [address] [place], [address], 10/03/2024 13:30:20 10/03/20 24 10/03/2024 .DIFF AUTO monocytes# auto 0.4 x10 0.2-0. 9 Not Available [facility] (Central Scheduling) [address] [place], [address], 10/03/2024 13:30:20 10/03/20 24 10/03/2024 .DIFF AUTO eos# auto 0.2 x10 0.0-1. 5 Not Available [facility] (Central Scheduling) [address] [place], [address], 10/03/2024 13:30:20 10/03/20 24 10/03/2024 .DIFF AUTO basophils# auto 0.0 x10 0.0-0. 2 Not Available [facility] (Central Scheduling) [address] [place], [address], 10/03/2024 13:30:20 10/03/20 24 10/03/2024 .DIFF AUTO immature granulocytes % auto 0.2 % <=1.0 Not Available [facility] (Central Scheduling) [address] [place], [address], 10/03/2024 13:30:20 10/03/20 24 10/03/2024 .DIFF AUTO immature granulocytes # auto 0 x10 Perfo rmed at: [id number] [address] [facility], , [place] [address] Not Available [facility] (Central Scheduling) [address] [place], [address], 10/03/2024 13:30:20 10/03/20 24 10/03/2024 UARFX MRFXC ur collection source U CLEAN CATCH Not Available [facility] (Central Scheduling) [address] [place], [address], 10/03/2024 13:32:59 10/03/20 24 10/03/2024 UARFX MRFXC ur color STRAW Not Available [facility] (Central Scheduling) [address] [place], [address], 10/03/2024 13:32:59 10/03/20 24 10/03/2024 UARFX MRFXC ur appearance CLEAR clear Not Available [facility] (Central Scheduling) [address], [place], [address], 10/03/2024 13:32:59 10/03/20 24 10/03/2024 UARFX MRFXC ur glucose NEGATI VE negati ve Not Available [facility] (Central Scheduling) [address] [place], [address], 10/03/2024 13:32:59 10/03/20 24 10/03/2024 UARFX MRFXC ur bili NEGATI VE negati ve Not Available [facility] (Central Scheduling) [address] [place], [address], 10/03/2024 13:32:59 10/03/20 24 10/03/2024 UARFX MRFXC ur ketone NEGATI VE negati ve Not Available [facility] (Central Scheduling) [address] [facility], [place], [address], 10/03/2024 13:32:59 10/03/20 24 10/03/2024 UARFX MRFXC ur specific gravity 1.020 1.001- 1.035 Not Available [facility] (Central Scheduling) [address] [place], [address], 10/03/2024 13:32:59 10/03/20 24 10/03/2024 UARFX MRFXC ur blood NEGATI VE negati ve Not Available [facility] (Central Scheduling) [address] [place], [address], 10/03/2024 13:32:59 10/03/20 24 10/03/2024 UARFX MRFXC ur pH 6.0 5.0-8. 0 Not Available [facility] (Central Scheduling) [address], [place], [address], 10/03/2024 13:32:59 10/03/20 24 10/03/2024 UARFX MRFXC ur protein NEGATI VE negati ve Not Available [facility] (Central Scheduling) [address], [place], [address], 10/03/2024 13:32:59 10/03/20 24 10/03/2024 UARFX MRFXC ur urobilinogen 0.2 eu/dL Not Available [facility] (Central Scheduling) [address], [place], [address], 10/03/2024 13:32:59 10/03/20 24 10/03/2024 UARFX MRFXC ur nitrite NEGATI VE negati ve Not Available [facility] (Central Scheduling) [address], [place], [address], 10/03/2024 13:32:59 10/03/20 24 10/03/2024 UARFX MRFXC ur leukocyte esterase NEGATI VE negati ve Not Available [facility] (Central Scheduling) [address], [place], [address], 10/03/2024 13:32:59 10/03/20 24 10/03/2024 UARFX MRFXC dipstick type? AUTO Not Available [facility] (Central Scheduling) [address], [place], [address], 10/03/2024 13:32:59 10/03/20 24 10/03/2024 UARFX MRFXC reflex microscopic type? NOT REQD Not Available [facility] (Central Scheduling) [address], [place], [address], 10/03/2024 13:32:59 10/03/20 24 10/03/2024 UARFX MRFXC reflex urine culture? NO Perfo rmed at: [id number] [address] [facility], , [place] [address] Not Available [facility] (Central Scheduling) [address], [place], [address], 10/03/2024 13:32:59 10/03/20 24 10/03/2024 UARFX MRFXC ur collection source U CLEAN CATCH Not Available [facility] (Central Scheduling) [address], [place], [address], 10/03/2024 13:33:00 10/03/20 24 10/03/2024 UARFX MRFXC ur color STRAW Not Available [facility] (Central Scheduling) [address], [place], [address], 10/03/2024 13:33:00 10/03/20 24 10/03/2024 UARFX MRFXC ur appearance CLEAR clear Not Available [facility] (Central Scheduling) [address], [place], [address], 10/03/2024 13:33:00 10/03/20 24 10/03/2024 UARFX MRFXC ur glucose NEGATI VE negati ve Not Available [facility] (Central Scheduling) [address] [place], [address], 10/03/2024 13:33:00 10/03/20 24 10/03/2024 UARFX MRFXC ur bili NEGATI VE negati ve Not Available [facility] (Central Scheduling) [address] [place], [address], 10/03/2024 13:33:00 10/03/20 24 10/03/2024 UARFX MRFXC ur ketone NEGATI VE negati ve Not Available [facility] (Central Scheduling) [address], [place], [address], 10/03/2024 13:33:00 10/03/20 24 10/03/2024 UARFX MRFXC ur specific gravity 1.020 1.001- 1.035 Not Available [facility] (Central Scheduling) [address], [place], [address], 10/03/2024 13:33:00 10/03/20 24 10/03/2024 UARFX MRFXC ur blood NEGATI VE negati ve Not Available [facility] (Central Scheduling) [address], [place], [address], 10/03/2024 13:33:00 10/03/20 24 10/03/2024 UARFX MRFXC ur pH 6.0 5.0-8. 0 Not Available [facility] (Central Scheduling) [address], [place], [address], 10/03/2024 13:33:00 10/03/20 24 10/03/2024 UARFX MRFXC ur protein NEGATI VE negati ve Not Available [facility] (Central Scheduling) [address], [place], [address], 10/03/2024 13:33:00 10/03/20 24 10/03/2024 UARFX MRFXC ur urobilinogen 0.2 eu/dL Not Available [facility] (Central Scheduling) [address], [place], [address], 10/03/2024 13:33:00 10/03/20 24 10/03/2024 UARFX MRFXC ur nitrite NEGATI VE negati ve Not Available [facility] (Central Scheduling) [address], [place], [address], 10/03/2024 13:33:00 10/03/20 24 10/03/2024 UARFX MRFXC ur leukocyte esterase NEGATI VE negati ve Not Available [facility] (Central Scheduling) [address] [place], [address], 10/03/2024 13:33:00 10/03/20 24 10/03/2024 UARFX MRFXC dipstick type? AUTO Not Available [facility] (Central Scheduling) [address] [place], [address], 10/03/2024 13:33:00 10/03/20 24 10/03/2024 UARFX MRFXC reflex microscopic type? NOT REQD Not Available [facility] (Central Scheduling) [address] [place], [address], 10/03/2024 13:33:00 10/03/20 24 10/03/2024 UARFX MRFXC reflex urine culture? NO Perfo rmed at: [id number] [facility], , [place] [address] Not Available [facility] (Central Scheduling) [address] [place], [address], 10/03/2024 13:33:00 10/03/20 24 10/03/2024 BMPWT CA sodium 138 mEq/L 136-14 5 Not Available [facility] (Central Scheduling) [address] [place], [address], 10/03/2024 13:37:57 10/03/20 24 10/03/2024 BMPWT CA potassium 3.9 mEq/L 3.7-5. 9 Not Available [facility] (Central Scheduling) [address] [place], [address], 10/03/2024 13:37:57 10/03/20 24 10/03/2024 BMPWT CA chloride 103 mEq/L 98-107 Not Available [facility] (Central Scheduling) [address], [place], [address], 10/03/2024 13:37:57 10/03/20 24 10/03/2024 BMPWT CA carbon dioxide 28 mEq/L 21-32 Not Available [facility] (Central Scheduling) [address], [place], [address], 10/03/2024 13:37:57 10/03/20 24 10/03/2024 BMPWT CA BUN 12 mg/dL 7-18 Not Available [facility] (Central Scheduling) [address], [place], [address], 10/03/2024 13:37:57 10/03/20 24 10/03/2024 BMPWT CA creatinine 0.68 mg/dL 0.60-1 .30 Not Available [facility] (Central Scheduling) [address], [place], [address], 10/03/2024 13:37:57 10/03/20 24 10/03/2024 BMPWT CA glucose 103 mg/dL 70-106 Not Available [facility] (Central Scheduling) [address], [place], [address], 10/03/2024 13:37:57 10/03/20 24 10/03/2024 BMPWT CA calcium 8.8 mg/dL 8.5-10 .6 Not Available [facility] (Central Scheduling) [address], [place], [address], 10/03/2024 13:37:57 10/03/20 24 10/03/2024 BMPWT CA eGFR 95 mL/mi n/1.7 3MA? >=90 CKD is defin ed by the prese nce of kyree spencer ation rate (GFR) <60 mL for >3 month s and/o r evide nce of yael (eg, struc tural abnor malit ies, histo logic abnor malit ies, album inuri a, urina ry sedim ent abnor malit ies, renal tubul ar disor ders, and/o r histo ry of kidne y trans plant ation ) for >3mon ths. This table provi patrick inter preta tion of speci fic eGFR value s. Creat inine measu remen ts, and there fore eGFR calcu latio ns, are affec alvarado by very high or very low muscl e mass, muscl e injur y, a diet very high in meat, hepat ic cirrh osis, certa in drugs , etc. Stage s of CKD: Stage Descr iptio n GFR mL/mi n 1 Kidne y damag e with laine l or incre ased GFR 90 2 Kidne y damag e with mild decre ase in GFR 60 to 89 3 Moder ate decre ase in GFR 30 to 59 4 Sever e decre ase in GFR 15 to 29 5 Kidne y failu re <15 (or dialy sis) Note: GFR Laine l range >60, equat ion not valid ated for ages <18 and >70 and pregn ant women . Not Available [facility] (Central Scheduling) [address], [place], [address], 10/03/2024 13:37:57 10/03/20 24 10/03/2024 BMPWT CA anion gap 10.9 mEq/L 8.0-16 .0 Not Available [facility] (Central Scheduling) [address] [place], [address], 10/03/2024 13:37:57 10/03/20 24 10/03/2024 BMPWT CA BUN/crea ratio 17.6 Not Available [facility] (Central Scheduling) [address] [place], [address], 10/03/2024 13:37:57 10/03/20 24 10/03/2024 BMPWT CA hil 111 111-11 1 Perfo rmed at: [id number], , [place] [address] Not Available [facility] (Central Scheduling) [address], [place], [address], 10/03/2024 13:37:57 10/03/20 24 10/03/2024 BMPWT CA sodium 138 mEq/L 136-14 5 Not Available [facility] (Central Scheduling) [address], [place], [address], 10/03/2024 13:37:55 10/03/20 24 10/03/2024 BMPWT CA potassium 3.9 mEq/L 3.7-5. 9 Not Available [facility] (Central Scheduling) [address], [place], [address], 10/03/2024 13:37:55 10/03/20 24 10/03/2024 BMPWT CA chloride 103 mEq/L 98-107 Not Available [facility] (Central Scheduling) [address], [place], [address], 10/03/2024 13:37:55 10/03/20 24 10/03/2024 BMPWT CA carbon dioxide 28 mEq/L 21-32 Not Available [facility] (Central Scheduling) [address], [place], [address], 10/03/2024 13:37:55 10/03/20 24 10/03/2024 BMPWT CA BUN 12 mg/dL 7-18 Not Available [facility] (Central Scheduling) [address], [place], [address], 10/03/2024 13:37:55 10/03/20 24 10/03/2024 BMPWT CA creatinine 0.68 mg/dL 0.60-1 .30 Not Available [facility] (Central Scheduling) [address], [place], [address], 10/03/2024 13:37:55 10/03/20 24 10/03/2024 BMPWT CA glucose 103 mg/dL 70-106 Not Available [facility] (Central Scheduling) [address] [facility] [place], [address], 10/03/2024 13:37:55 10/03/20 24 10/03/2024 BMPWT CA calcium 8.8 mg/dL 8.5-10 .6 Not Available [facility] (Central Scheduling) [address] [place], [address], 10/03/2024 13:37:55 10/03/20 24 10/03/2024 BMPWT CA eGFR 95 mL/mi n/1.7 3MA? >=90 CKD is defin ed by the prese nce of glome yunieldcr filtr ation rate (GFR) <60 mL for >3 month s and/o r evide nce of kidne y damag e (eg, struc tural abnor malit ies, histo logic abnor malit ies, album inuri a, urina ry sedim ent abnor malit ies, renal tubul ar disor ders, and/o r histo ry of kidne y trans plant ation ) for >3mon ths. This table provi patrick inter preta tion of speci fic eGFR value s. Creat inine measu remen ts, and there fore eGFR calcu latio ns, are affec alvarado by very high or very low muscl e mass, muscl e injur y, a diet very high in meat, hepat ic cirrh osis, certa in drugs , etc. Stage s of CKD: Stage Descr iptio n GFR mL/mi n 1 Kidne y damag e with laine l or incre ased GFR 90 2 Kidne y damag e with mild decre ase in GFR 60 to 89 3 Moder ate decre ase in GFR 30 to 59 4 Sever e decre ase in GFR 15 to 29 5 Kidne y failu re <15 (or dialy sis) Note: GFR Laine l range >60, equat ion not valid ated for ages <18 and >70 and pregn ant women . Not Available [facility] (Central Scheduling) [address], [place], [address], 10/03/2024 13:37:55 10/03/20 24 10/03/2024 BMPWT CA anion gap 10.9 mEq/L 8.0-16 .0 Not Available [facility] (Central Scheduling) [address], [place], [address], 10/03/2024 13:37:55 10/03/20 24 10/03/2024 BMPWT CA BUN/crea ratio 17.6 Not Available [facility] (Central Scheduling) [address], [place], [address], 10/03/2024 13:37:55 10/03/20 24 10/03/2024 BMPWT CA hil 111 111-11 1 Perfo rmed at: [id number], , [place] [address] Not Available [facility] (Central Scheduling) [address], [place], [address], 10/03/2024 13:37:55 10/03/20 24 10/03/2024 PTT thromboplast in time partial 23.2 secon d(s) 24.7-3 1.5 low Perfo rmed at: [address], , [place] [address] Not Available [facility] (Central Scheduling) [address], [place], [address], 10/03/2024 13:43:33 10/03/20 24 10/03/2024 PTT thromboplast in time partial 23.2 secon d(s) 24.7-3 1.5 low Perfo rmed at: [address], , [place] [address] Not Available [facility] (Central Scheduling) [address], [place], [address], 10/03/2024 13:43:34 10/03/20 24 10/03/2024 PTWIN R PT 10.7 secon d(s) 9.8-11 .6 Not Available [facility] (Central Scheduling) [address] [facility], [place], [address], 10/03/2024 13:43:36 10/03/20 24 10/03/2024 PTWIN R INR 1.0 The recom nahum d oral antic oagul ant thera peuti c range s: INR of 0.9-1 .0 (norm al/no antic oagul ant) INR of 2.0 3.0 (for venou s throm boemb olism , atria l fibri llati on, and certa in heart valve s.) INR of 2.5 3.5 (for certa in heart valve s) (Ref: [facility] 2017) Perfo rmed at: [id number] [facility], , [place] [address] Not Available [facility] (Central Scheduling) [address] [place], [address], 10/03/2024 13:43:36 10/03/20 24 10/03/2024 PTWIN R PT 10.7 secon d(s) 9.8-11 .6 Not Available [facility] (Central Scheduling) [address] [place], [address], 10/03/2024 13:43:35 10/03/20 24 10/03/2024 PTWIN R INR 1.0 The recom nahum d oral antic oagul ant thera peuti c range s: INR of 0.9-1 .0 (norm al/no antic oagul ant) INR of 2.0 3.0 (for venou s throm boemb olism , atria l fibri llati on, and certa in heart valve s.) INR of 2.5 3.5 (for certa in heart valve s) (Ref: [facility] 2017) [place]fo [place]: [address], , [place] [address] Not Available [facility] (Central Scheduling) [address], [place], [address], 10/03/2024 13:43:35 09/07/20 24 09/06/2024 DEXA, axial skele ton No observ ation record ed. [email or web address] [facility] (Medical Records) [address], [place], [address], 09/20/2024 12:13:01 09/12/2009/06/2024 MAMMO , scree zachary, tomos ynthe sis, bilat eral No observ ation record ed. [email or web address] [facility] [address], [place], [address], 09/20/2024 12:13:01 Result Notes None recorded. Problems Name Problem SNOMED Code Status Onset Date Resolution Date Notes Provider Name and Address Organization Details Recorded Time Pain of left heel [id number] 68640 Completed 202207/25/2024 Removal Reason: resolved STERLING AMOS MD [address], [place], [address] , [facility] 12:33:03 Trigger finger of right hand [id number] 899876 Completed 202207/25/2024 STERLING AMOS MD [address], [place], [address] , [facility], [facility] 12:33:10 Acquired trigger finger of right ring finger [id number] 9108 Active 2022 STERLING AMOS MD [address], [place], [address] , [facility] 10/14/202 4 12:33:07 Hypercho lesterol emia [id number] Completed 202207/25/2024 STERLING AMOS MD [address], [place], [address] , [facility], [facility] 4 12:32:44 Postoper ative care Active 2024 Sukhjinder Wolf MD [address], [place], [address] , [facility], [facility] 5 15:47:26 Disorder of nasal sinus 1415512 Completed 07/25/2024 STERLING AMOS MD [address], [place], [address] , [facility], [facility] 4 12:32:56 Hyperlip idemia 19265804 Active 2022 STERLING AMOS MD [address], [place], [address] , [facility], [facility] 3 19:07:38 Overacti ve urinary bladder 271153679 Active 2022 STERLING AMOS MD [address], [place], [address] , [facility], [facility] 4 12:32:39 Hypergly cemia 80230014 Completed 202207/25/2024 STERLING AMOS MD [address], [place], [address] , [facility], [facility] 4 12:32:53 Problem Notes None recorded. Procedures Surgical History Date Name Laterality Status Provider Name and Address Organization Details Recorded Time 07/25/20 24 Medicare Wellness CPT Code, Subsequent completed Nissa Gillette MA [facility], [facility] 07/25/2024 10:06:05 07/24/20 23 Medicare Wellness CPT Code, Subsequent completed Alec Garcia MA [facility], [facility] 07/24/2023 17:21:04 06/05/20 23 Medicare Wellness CPT Code, Initial cancelled Licha Leon MA [facility], [facility] 06/04/2023 18:07:57 06/05/20 23 Medicare Wellness CPT Code, Subsequent cancelled Licha Leon MA [facility], [facility] 06/04/2023 18:07:59 09/01/20 22 Most Recent Mammogram completed Nakita Heller [facility], [facility] 03/11/2023 18:48:27 02/21/20 22 Medicare Wellness CPT Code, Subsequent completed Joleen Valente MA [facility], [facility] 02/20/2022 10:58:21 08/22/20 21 Date of Last Mammogram completed Nakita Heller [facility], [facility] 03/11/2023 18:47:01 02/13/20 21 Telehealth Communication completed [facility], [facility] 02/11/2021 13:41:17 02/01/20 21 Medicare Wellness CPT Code, Initial completed [facility], [facility] 01/31/2021 11:38:04 09/05/20 20 Date of Last Colonoscopy completed Nakita Heller [facility], [facility] 03/11/2023 18:47:01 04/11/20 16 Date of Last Pap Smear completed [facility], [facility] 08/31/2020 13:38:30 11/12/19 09 Unlisted px ant segment eye completed [facility], [facility] 08/31/2020 13:37:24 09/11/20 01 Unlisted px accessory sinus completed [facility], [facility] 08/31/2020 13:36:57 03/12/19 74 surgical manipulation of ankle joint completed [facility], [facility] 08/31/2020 13:37:47 Imaging Results None recorded. Procedure Notes None recorded. Medical Equipment None Reported. Allergies No known drug allergies Medications Name Sig Start Date Stop Date Status Note LastModified by Organization Details LastModified Time hydrocodone 5 mg-acetamin ophen 325 mg tablet Take 1 tablet every 6 hours by oral route. active Not Available Not Available No t Available peg-electro lyte solution 420 gram oral solution USE DIRECTED. DRINK 8 OUNCES EVERY 15 MINUTES. 02/20 completed Not Available Not Available Not Available amoxicillin 875 mg tablet Take 1 tablet every 12 hours by oral route with meal(s) for 10 days. 07/21 completed Not Available Not Available Not Available tolterodine 2 mg tablet TAKE 1 TABLET BY MOUTH ONCE DAILY NEEDED active Not Available Not Available No t Available simvastatin 20 mg tablet TAKE 1 TABLET BY MOUTH DAILY DIRECTED 2024 active Not Available Not Available Not Avai lable methylpredn isolone 4 mg tablets in a dose pack 07/24 completed Not Available Not Available Not Available fluticasone propionate 50 mcg/actuati on nasal spray,suspe nsion 2 sprays as needed by nasal route. 2023 active Not Available Not Available Not Avai lable ipratropium bromide 21 mcg (0.03 %) nasal spray USE 2 SPRAYS 3 TIMES A DAY UNTIL DIRECTED TO STOP. BOTH NOSTRILS FOR 3 WEEKS. 03/11 completed Not Available Not Available Not Available amoxicillin 875 mg-potassiu m clavulanate 125 mg tablet TAKE 1 TABLET BY MOUTH EVERY 12 HOURS FOR 5 DAYS 02/20 completed Not Available Not Available Not Available rosuvastati n 5 mg tablet Take 1 tablet every day by oral route. 09/14 completed Not Available Not Available Not Available Flublok Quad (PF) 180 mcg (45 mcg x 4)/0.5 mL IM syringe PHARMACY ADMINISTE RED 02/20 completed Not Available Not Available Not Available Vitals Date Recorded Body height Body mass index (BMI) Body weight Heart rate Oxygen saturation Oxygen saturation in Arterial blood by Pulse oximetry Systolic blood pressure Diastolic blood pressure Provider Name and Address Organization Details Last Updated DateTime 5 170.18 cm 32 kg/m2 62741.8 4 g 63 /min 96 % 96 % 126 mm[Hg] 82 mm[Hg] Kaylan Kent MA [place] [facility], [facility] 5 12:12:20 Date Recorded Body height Body mass index (BMI) Body weight Heart rate Body temperature Oxygen saturation Oxygen saturation in Arterial blood by Pulse oximetry Systolic blood pressure Diastolic blood pressure Provider Name and Address Organization Details Last Updated DateTime 4 170.18 cm 32.6 kg/m2 58319.2 1 g 68 /min 97.9 [degF] 97 % 97 % 118 mm[Hg] 60 mm[Hg] Melinda Aden [facility], [facility] 4 18:21:58 Date Recorded Body height Body mass index (BMI) Body weight Heart rate Body temperature Oxygen saturation Oxygen saturation in Arterial blood by Pulse oximetry Respiratory rate Systolic blood pressure Diastolic blood pressure Provider Name and Address Organization Details Last Updated DateTime 4 170.18 cm 31.3 kg/m2 79924.4 7 g 72 /min 97.5 [degF] 97 % 97 % 16 /min 124 mm[Hg] 70 mm[Hg] Nissa Gillette MA [facility], [facility] 4 10:44:31 Date Recorded Body height Body mass index (BMI) Body weight Provider Name and Address Organization Details Last Updated DateTime 09/20/2024 170.18 cm 31.3 kg/m2 01249.47 g Ester Mario [facility], [facility] 09/20/2024 11:34:39 Social History Question Answer Notes LastModified by Organizat ion Details LastModified Time Tobacco Smoking Status Former Smoker Michell alexander [facility], [facility] 01/24/2021 18:18:16 Do You Have An Advance Directive? Yes Information not available 02/20/2022 What Is Your Level Of Caffeine Consumption? Moderate Information not available 01/24/2021 How Much Tobacco Do You Chew? None Information not available 01/24/2021 When Did You Quit Smoking? 17+yearssince reba [email or web address] Information not available 07/25/2024 Marital Status Informatio n not available 02/20/2022 Do You Have A Medical Power Of Humanities Coordinator? Yes Information not available 02/20/2022 What Was The Date Of Your Most Recent Tobacco Screening? 12/24/2023 [email or web address] Information not available 12/24/2023 Seat Belts Used Routinely Yes Information not available 02/20/2022 At What Age Did You Start Smoking Tobacco? 18 [email or web address] Information not available 07/25/2024 How Much Tobacco Do You Smoke? No [email or web address] Information not available 07/25/2024 Do You Use Sunscreen Routinely? Yes Information not available 02/20/2022 How Many Years Have You Smoked Tobacco? 25 Information not available 01/24/2021 Have You Recently Traveled Abroad? No [email or web address] Information not available 07/25/2024 Sex: Female Functional Status Question Answer Note LastModified by Organizat ion Details LastModified Time Do you or have you ever used any other forms of tobacco or nicotine? No [email or web address] Information not available 07/25/2024 What is your level of alcohol consumption? Occasional Information not available 08/31/2020 Are you able to care for yourself? Yes [email or web address] Information not available 07/25/2024 Do you or have you ever used e-cigarettes or vape? Never used electronic cigarettes Information not available 01/24/2021 Mental Status None recorded. Family History Relationship Description Onset Age of this Age Resolved Age Notes LastModified by Organization Details LastModified Time Father Heart disease Not available 2019 13:33:46 Father Myocardial infarction Not available 08/31 13:34:01 Unspecified Relation Asthma Not available 2 10:49:57 Mother Malignant neoplasm of ovary Not available 2021 10:49:57 Mother History of cancer of unknown primary site Not available 09/2022 10:49:57 Medical History Condition Response HYPERCHOLESTEROLEMIA Y Gynecological History Statement/Question Response Date of Last Mammogram 08/22/2021 Date of Last Colonoscopy 09/05/2020 STIs/STDs N Number of Pregnancies 4 HPV Vaccine N Date of Last Pap Smear 04/11/2016 Most Recent Mammogram 09/01/2022 Current Control Method None Obstetrics History GPAL:G 0 P 0 0 0 0 Immunizations Vaccine Type Date Status Note Provider Nam e and Address Organization Details Recorded Time zoster recombinant 4 completed DELMY Krause - [facility], [facility] 12/24/2023 18:16:07 Influenza, high-dose, quadrivalent, PF 3 completed [place] [facility], [facility], [facility] 12/24/2023 18:16:07 Pneumococcal conjugate PCV20, polysaccharide IRX229 conjugate, adjuvant, PF 3 completed [facility], [facility], [facility] 12/24/2023 18:16:07 Tdap 3 completed [facility], [facility], [facility] 12/24/2023 18:16:07 Influenza, adjuvanted, trivalent, PF 5 completed STERLING AMOS MD [address], [place], [address], [facility], [facility] 03/11/2023 19:03:22 Influenza, recombinant, quadrivalent, PF 0 completed STERLING AMOS MD [address], [place], [address], [facility], [facility] 03/11/2023 19:03:22 Influenza, recombinant, quadrivalent, PF 9 completed STERLING AMOS MD [address], [place], [address], [facility], [facility] 03/11/2023 19:03:23 Influenza, high-dose, quadrivalent, PF 2 completed STERLING AMOS MD [address], [place], [address], [facility], [facility] 03/11/2023 19:03:23 Influenza, adjuvanted, quadrivalent, PF 1 completed STERLING AMOS MD [address], [place], [address], [facility], [facility] 03/11/2023 19:03:23 COVID-19 vaccine, vector-nr, rS-Ad26, PF, 0.5 mL 1 completed STERLING AMOS MD [address], [place], [address], [facility], [facility] 03/11/2023 19:03:23 Influenza, split virus, trivalent, preservative 6 completed STERLING AMOS MD [address], [place], [address], [facility], [facility] 03/11/2023 19:03:23 Influenza, split virus, quadrivalent, PF 8 completed STERLING AMOS MD [address], [place], [address], [facility], [facility] 03/11/2023 19:03:23 Tdap 2 completed Michell alexander, [facility], [facility] 08/31/2020 13:32:24 Influenza, split virus, quadrivalent, preservative 9 completed Irasema alexander, [facility], [facility] 02/20/2022 10:49:57 Past Encounters Encounter ID Performer Location Encounter Start Date Encounter Closed Date Diagnosis/Indication Diagnosis SNOMED-CT Code Diagnosis ICD10 Code Diagnosis Note CHAU Preston [id number] [facility] [place] [address] [address] [facility] [place] [address] [place] [address] 09/14/2020 14:57:07 09/14/2020 15:54:27 [facility] [id number] E78.00 continue to follow a healthy diet and exercise. [id number] CHAU Preston_SAHUA JAVED [address] [place] [address] [place] [address] 01/29/2021 14:11:54 02/01/2021 12:50:38 [id number] CHAU Preston NWA_SAHUA JAVED [address] [address] [place] [address] 01/31/2021 11:23:16 01/31/2021 13:30:38 Adult health examination 264438676 Z00.00 Screening for disorder 233874236 Z13.89 Hyperlipidemia 36899301 E78.5 [id number] Amna LewisCHAU peoples NWA_[address]ULEE BURT [address] [facility] [address] [place] [address] 02/12/2021 16:18:04 02/12/2021 17:12:00 Hypercholesterolemia 92643467 E78.00 continue to follow a healthy diet and exercise. [id number] AmnaCHAU Hameed NWA_[id number] [address] [facility] [address] [facility],[address] [place] [address] 02/20/2022 10:48:02 02/20/2022 12:00:52 Adult health examination 286957595 Z00.00 Screening for disorder 428294531 Z13.89 Depression screening 171 361446 Z13.31 Vaccination needed 81450 91041 85332 Z23 [id number] MD AWILDA ROJAS [address] [facility],[address] [facility] [place] [address] 03/11/2023 18:25:04 03/11/2023 19:46:15 Hyperlipidemia 59976476 E78.5 Reviewed previous labs, elevated total cholestero l and LDL (02/01/2021 ). Takes simvastati n. Ordering labs. Overactive urinary bladder 097249698 N32.81 Well-contr olled with tolterodin e. Refilling medication , patient denies any side effects. Hyperglycemia 65372206 R 73.9 Reviewed previous labs, glucose 106 (02/01/2021 ). Ordering HbA1c. [id number] MD AWILDA ROJAS [address] [place] [address] 06/10/2023 17:39:09 06/16/2023 06:52:42 Pain of left heel 2632473255 506510 M79.672 Ordering x-ray, possible achilles tendinitis . Can take Tylenol/ib uprofen as needed for pain relief. Sending referral to podiatry for further management . Trigger fi nger of right hand 8037978538 3646565 M65.30 Continue ROM exercises, can take Tylenol/ib uprofen as needed for pain relief. Sending referral to ortho for further management . [id number] MD LESTER Osorio_Spec[facility] alty Care at [facility] [address] [place] [address] 06/30/2023 11:02:38 06/30/2023 12:18:33 Acquired trigger finger of right ring finger 9554082262 44930 M65.341 Treatment options were discussed. I explained to the patient that since this has been going on for 2 years she is unlikely to be cured with conservati ve measures. I recommende d a trigger finger release. I have given her informatio n from the [employer] website regarding this. She would like to schedule this. I have today discussed with the patient her diseased state, the proposed treatment, the expected benefits, and the material risks of that treatment, as well as alternativ e forms of treatment, including no treatment at all. The patient consents to the treatment as proposed. [id number] MD AWILDA ROJAS [address] [facility],[address] [place] [address] 07/24/2023 17:00:32 07/24/2023 18:12:30 Adult health examination 710043076 Z00.00 Screening for disorder 610553966 Z13.89 Depression screening 171 311029 Z13.31 Overactive urinary bladder 526330973 N32.81 Well-contr olled with tolterodin e. Refilling medication , patient denies any side effects. Hypercholesterolemia 136 92975 E78.00 Reviewed previous labs with patient. 10 year ASCVD Risk: 6.1%. Patient prefers to continue current dose of simvastati n and focus on dietary modificati ons. Recheck 6 months from last checked. Refilling simvastati n, patient denies any side effects. [id number] PARISH Huang [address] [facility],[address] [place] [address] 12/24/2023 18:11:20 12/24/2023 18:55:11 Obesity 730447835 E66.9 Acute otitis media 77188 03 H66.91 [id number] STERLING AMOS MD NW_JULEE BURT [address] [facility],[address] [place] [address] 07/25/2024 10:28:56 07/25/2024 11:01:19 Adult health examination 550339989 Z00.00 Screening for disorder 813671904 Z13.89 Depression screening 171 193504 Z13.31 Screening for osteoporosis 669699020 Z13.820 Hyperlipidemia 81659246 E78.5 Reviewed lipid panel with patient. Total cholestero l: 216, LDL: 127 (06/02/23). Takes simvastati n 20 mg PO QD, continue as prescribed . Patient denies any side effects of medication . Recommend dietary modificati ons. Screening for malignant neoplasm of breast 976998244 Z12.31 Overactive urinary bladder 508152745 N32.81 Stable with tolterodin e. [id number] MD LESTER Osorio_Specguy Francis at [address] [place] [address] 09/20/2024 11:20:12 09/20/2024 12:21:00 Acquired trigger finger of right ring finger 4998532142 92376 M65.341 Z01.818 Treatment options were discussed. I explained to the patient that since this has been going on for 3 years she is unlikely to be cured with conservati ve measures. I recommende d a trigger finger release. I have given her informatio n from the [employer] website regarding this. She would like to schedule this. I have today discussed with the patient her diseased state, the proposed treatment, the expected benefits, and the material risks of that treatment, as well as alternativ e forms of treatment, including no treatment at all. The patient consents to the treatment as proposed. [id number] MD LESTER Osorio_Specguy Francis at [address] [place] [address] 10/31/2024 11:57:19 10/31/2024 12:23:08 Postoperative care 330148614 Z48.89 Suture removal today. Advance on activities as tolerated. [id number] Sukhjinder Wolf MD NWA_[facility]i [facility] Care at [facility] [address] [place] [address] 01/02/2025 11:17:51 01/02/2025 13:37:31 Postoperative care 673314285 Z48.89 Treatment options were discussed. I offered to send the patient to hand therapy. She refused the offer. I have encouraged her to apply heat and scar massage as well as stretching . I demonstrat ed the stretching for her. Follow-up visit on an as-needed basis. Health Concerns Section Related Observation LastModified by Organization Detai ls LastModified Time None Recorded Concern Status LastModified by Organization Details LastModified Time None Recorded Advance Directives Directive Y: Payers Insurance Date Sequence Insurance Name Policy Number Policy Carlson Covered Member ID Carlson Member ID Guarantor Name 06/01/2023 2 [facility] (HMO) Katrina Vang [id number] Katrina Vang 12/30/2024 1 [facility] (MEDICARE REPLACEMENT/A DVANTAGE - HMO) [id number] Katrina Vang [id number] Katrina Vang 06/01/2023 1 [facility] [employer] (HMO) [id number] Katrina Vang [id number] Katrina Vang 06/01/2023 1 INTERFACE REVIEW REQUIRED [id number] Katrina Vang [id number] Katrina Vang Notes Date Note Type Note Provider Name and Address Organization Details Recorded Time 12/24/2023 text/html Katrina is a 68 ye ar old female that presents with a 1 day history of shooting pains to her left ear She took tylenol with some benefit. She does report nasal drainage / post nasal drip over the past couple weeks. Carolin Foy NP [address] [facility] [address] [place], [address], [facility], [facility] 12/24/2023 18:37:50 07/25/2024 text/html This is a pleasa nt 69 year old female who presents today for annual Medicare wellness visit. She is doing well. Additional concerns:- Hyperlipidemia. Takes simvastatin.- Overactive bladder. Takes tolterodine PRN. STERLING AMOS MD [address], [place], [address], [facility], [facility] 07/25/2024 12:36:14 09/20/2024 text/html This 68-year-old female has a 3-year history of pain locking and popping in her right ring finger. She is treated this with activity modifications and splinting. She has not had any steroid injection. She denies any numbness or tingling. No imaging studies. She has pain at the base of her palm over the A1 rajesh.There has been no improvement since the last office visit. The patient was on the schedule for surgery last year but she delayed this because of her Achilles tendinitis. She is complaining of locking. Sukhjinder Wolf MD [address], [place], [address], [facility] [employer] [facility], [facility] 09/20/2024 12:17:07 10/31/2024 text/html Date of surgery October 14, 2024. Right ring trigger finger release. She notes no numbness or tingling. The preoperative symptoms are absent. Sukhjinder Wolf MD [address] [facility] [address], [place], [address], [facility], [facility] 10/31/2024 12:16:00 01/02/2025 text/html Date of surgery October 14, 2024. Right ring trigger finger release. She notes no numbness or tingling. She is complaining of tenderness in the area of the incision. She notes no numbness or tingling. She denies any triggering. She states she has not difficulty fully extending her finger. Sukhjinder Wolf MD [address], [place], [address], [facility], [facility] 01/02/2025 11:52:01 OBGyn Episode No OBEpisode recorded.
--- OUTSIDE RECORDS SUMMARY | 2025-04-10 02:57 | XMS_ITS | Clinical Summary ---
Author Organization [facility] Health Address [address] [place] [address] Care Team Providers Care Volumetric Weigher Name Role Phone Unavailable Primary Care Provider Unavailabl e Allergies No known active allergies Medications simvastatin (ZOCOR) 20 mg tablet Take 20 mg by mouth every night. Active tolterodine (DETROL) 2 mg tablet 03/11/2023 Active Active Problems Problem Noted Date Diagnosed Date Disorder of nasal sinus 06/28/2024 Hyperglycemia 03/10/2023 Hyperlipidemia 03/10/2023 Encounters Date Type Department Care Team Description 03/07/2025 11:00 AM [facility] Office Visit [facility] [address] [place] [address] Abimael Booth DMD from Last 3 Months Social History Tobacco Use Types Packs/Day Years Used Date Smoking Tobacco: Former Cigarettes Tobacco Cessation:Counseling Given: Not Answered Alcohol Use Standard Drinks/Week Comments Yes 0 (1 standard drink = 0.6 oz pur e alcohol) Comments Unknown Sex and Gender Information Value Date Recorded Sex Assigned at Not on file Legal Sex Female 9:53 AM PDT Gender Identity Not on file Sexual Orientation Not on file Last Filed Vital Signs Vital Sign Reading Time Taken Comments Blood Pressure 129/79 03/07/2025 11:00 AM [facility] Pulse 70 03/07/2025 11:00 AM [facility] Temperature - - Respiratory Rate - - Oxygen Saturation - - Inhaled Oxygen Concentration - - Weight - - Height - - Body Mass Index - - Plan of Treatment Upcoming Encounters Date Type Department Care Team (Late st Contact Info) Description 07/07/2025 8:30 AM [facility] Office Visit [facility] [address] [place] [address] Abimael Booth DMD [address] [place] [address] 07/14/2025 1:00 PM [facility] Office Visit [facility] [address] [place] [address] eDrek Kaur, [facility] [address] [place] [address] 07/14/2025 1:30 PM [facility] Office Visit [facility] [address] [place] [address] Abimael Booth DMD [address] [place] [address] Health Maintenance Due Date Last Done Comments Periodontal Maintenance 1955 Dental X-Ray: Full Mouth 09/13/2024 09/12/2021 Dental X-Ray: Panoramic 09/13/2024 09/12/2021 Scaling and Root Planing 06/25/2025 06/11/2023 Dental Oral Exam 07/07/2025 01/03/2025, 01/2024, 10/29/2022, Additional history exists Dental X-Ray: Bitewings 07/07/2025 01/03/2025 Colonoscopy Discontinued 09/04/2020 Procedures Procedure Name Priority Date/Time Associated Diagnosis Comments SINGLE X-RAY Routine 03/07/2025 11:00 AM [facility] LIMITED ORAL EVALUATION - PROBLEM FOCUSED Routine 03/07/2025 11:00 AM [facility] PERIODIC ORAL EVALUATION - ESTABLISHED PATIENT Routine 01/03/2025 1:30 PM [facility] Encounter for dental examination and cleaning without abnormal findings LR PERIODONTAL SCALING AND ROOT PLANING - ONE TO THREE TEETH PER QUADRANT Routine 06/11/2023 1:00 PM [facility] PANORAMIC RADIOGRAPHIC IMAGE Routine 09/12/2021 9:30 AM [facility] INTRAORAL - COMPREHENSIVE SERIES OF RADIOGRAPHIC IMAGES Routine 09/12/2021 9:30 AM [facility] from Last 3 Months or Most Recently Relevant to Health Maintenance Insurance [employer] [facility] [employer]
--- OUTSIDE RECORDS SUMMARY | 2025-04-10 02:57 | XMS_ITS | Encounter Summary ---
Author Organization [facility] Health Address [address] [place] [address] Care Team Providers Care Plant Puller Name Role Phone Unavailable Primary Care Provider Unavailabl e Encounter Details Date Type Department Care Team (Latest Contact Info) Description 09/12/2021 Abstract Social History Tobacco Use Types Packs/Day Years Used Date Smoking Tobacco: Never Assessed Comments Unknown Sex and Gender Information Value Date Recorded Sex Assigned at Not on file Legal Sex Female 9:53 AM PDT Gender Identity Not on file Sexual Orientation Not on file COVID-19 Exposure Response Date Recorded In the last month, have you been in contact with someone who was confirmed or suspected to have Coronavirus / COVID-19? No / Unsure 09/12/2021 9:20 AM PST documented as of this encounter Plan of Treatment Upcoming Encounters Date Type Department Care Team (Late st Contact Info) Description 07/07/2025 8:30 AM [facility] Office Visit [facility] [address] [place] [address] Abimael Booth, JANN [address] [place] [address] 07/14/2025 1:00 PM [facility] Office Visit [facility] [address] [place] [address] Derek Kaur, [facility] [address] [place] [address] 07/14/2025 1:30 PM [facility] Office Visit [facility] [address] [place] [address] Abimael Booth, JANN [address] [place] [address] documented as of this encounter Visit Diagnoses Not on filedocumented in this encounter
[2025-04-10 02:58] VITALS: BP 145/88; PULSE 77; RESP 16; TEMP 36.1; O2SAT 95; BMI 32.3
--- NOTE | 2025-04-10 03:09 | CRLHL7_ITS ---
For Patients: As a result of the Century Cures Act, medical imaging exams and procedure reports are released immediately into your electronic medical record. You may view this report before your referring provider. If you have questions, please contact your health care provider. Indication: Right flank pain Technique: Noncontrast CT through the abdomen and pelvis with multiplanar reformats. Comparison: None Findings: Lower chest: Trace right effusion. Bibasilar atelectasis and/or scarring. Hepatobiliary: No significant parenchymal abnormality is appreciated. Spleen: Unremarkable. Pancreas: No acute abnormality appreciated. Adrenal glands: No acute abnormality appreciated. Kidneys: No significant parenchymal abnormality appreciated. No visualized calculi. No hydronephrosis. Bowel: No obstruction. No focal perienteric or pericolonic stranding is appreciated. The appendix is visualized and appears unremarkable. Vascular: Poorly evaluated on this noncontrast examination. Calcified atherosclerosis. Lymph nodes: No gross lymphadenopathy. Peritoneum: No free air. No free fluid. : Slight bladder wall thickening. Soft tissues: No acute abnormality appreciated. Bones: No acute fracture. No lytic or blastic lesion. Mild degenerative changes of the spine and pelvis. Impression: Slight bladder wall thickening, nonspecific but can be correlated for UTI/cystitis. No other acute abnormality appreciated to account for patient`s reported symptoms. Please note that all CT scans at this facility use dose modulation, iterative reconstruction, and/or weight-based dosing when appropriate to reduce radiation dose to as low as reasonably achievable. Dictated by Memo Villa MD @ 04/10/2025 3:37:25 AM (Electronically Signed)
--- NOTE | 2025-04-10 03:10 | ED_ITS ---
HPI - General Adult General Chief complaint: Flank Pain Stated complaint: lower right back pain Time Seen by Provider: 04/10/25 02:57 Source: patient Mode of arrival: ambulatory Limitations: no limitations History of Present Illness HPI narrative: Patient is a 70-year-old female no pertinent medical issues presenting for right flank pain. She states the pain started suddenly around 21:30. Pain does not seem to radiate anywhere. Describes as a sharp stabbing sensation that is becoming more persistent. Has never had pain like this before. No history of back injuries and she is aware of. Denies any saddle anesthesia, urinary retention, urinary incontinence, bowel incontinence. Was not sent any chest pain or shortness of breath. Denies any abdominal pain or nausea. Denies any dysuria or polyuria. Denies lightheadedness or dizziness. Has not taken anything yet for pain. Denies fevers or chills. States the pain is better when she sits completely still. Does not remember hurting the back but does states she was helping her daughter move yesterday. Related Data Allergies Allergy/AdvReac Type Severity Reaction Status Date / Time No Known Drug Allergies Allergy Verified 04/10/25 03:01 Review of Systems Status of ROS: Reports: 10 or more systems reviewed and unremarkable except as noted in History and below Exam Narrative: Exam Narrative: Const: Well-nourished, Well-developed, in moderate distress Eyes: PERRL, no conjunctival injection, and symmetrical lids HENT: Atraumatic external nose and ears. Moist mucous membranes. Neck: Symmetric, trachea midline, No thyromegaly. CVS: RRR, No murmurs or gallops. Peripheral pulses 2+ and equal in all extremities RESP: Unlabored respiratory effort. Clear to auscultation bilaterally. GI: Nontender/Nondistended, No rebound or guarding. Right CVA tenderness MSK:Extremities w/o deformity, Normal Active ROM Skin: Warm, Dry. No rashes or lesions. Neuro: Normal Muscle tone, No focal neurological deficits. Psych: Awake, Alert, & Oriented x3. Appropriate mood and affect. Const: Vital Signs, click to edit/add: Vital Signs - 24 hr 04/10/25 02:58 Temperature 96.9 F L Pulse Rate [Left P ulse Oximeter] 77 Respiratory Rate 16 Blood Pressure [Ri ght Upper Arm] 145/88 H Pulse Oximetry 95 Oxygen Delivery Me thod Room Air Course Vital Signs Vital signs: Initial Vital Signs Temperature 96.9 F L 04/10/25 02:58 Temperature Source Temporal Artery Scan 04/10/25 02:58 Pulse Rate 77 04/10/25 02:58 Pulse Rhythm Regular 04/10/25 02:58 Respiratory Rate 16 04/10/25 02:58 Blood Pressure 145/88 H 04/10/25 02:58 Blood Pressure Mean 107 H 04/10/25 02:58 Blood Pressure Position Sitting 04/10/25 02:58 Pulse Oximetry 95 04/10/25 02:58 Oxygen Delivery Method Room Air 04/10/25 02:58 Vital Signs Temperature 96.9 F L 04/10/25 02:58 Pulse Rate 77 04/10/25 02:58 Respiratory Rate 16 04/10/25 02:58 Blood Pressure 145/88 H 04/10/25 02:58 Pulse Oximetry 95 04/10/25 02:58 Oxygen Delivery Method Room Air 04/10/25 02:58 Temperature 96.9 F L 04/10/25 02:58 Pulse Rate 77 04/10/25 02:58 Respiratory Rate 16 04/10/25 02:58 Blood Pressure 145/88 H 04/10/25 02:58 Pulse Oximetry 95 04/10/25 02:58 Oxygen Delivery Method Room Air 04/10/25 02:58 Medications Administered Medications: Discontinued Medications Generic Name Dose Route Start Last Admin Trade Name Freq PRN Reason Stop Dose Admin Ketorolac Tromethamine 15 mg 04/10/25 03:09 04/10/25 03:30 Ketorolac 15 Mg/Ml Inj IVP 04/10/25 03:10 15 mg ONCE ONE Administration Morphine Sulfate 4 mg 04/10/25 03:09 04/10/25 04:26 Morphine 4 Mg/Ml Inj IVP 04/10/25 03:10 4 mg ONCE ONE Administration Medical Decision Making [facility] Narrative Medical decision making narrative: Patient is a 70-year-old female presenting for right flank pain. No recent injuries that would be causing this back pain although she did recently help her daughter move. Pain came on suddenly. Based on my physical exam and history I and concern for a kidney stone. Will do a CT scan for better evaluation. Is not showing any signs of UTI but will check a urinalysis. She is otherwise stable and I have a low concern for a ruptured AAA. Will also check a CBC and CMP. She is not having any nausea so will not give Zofran at this time. Will start off with Toradol for pain. Toradol helped some with the pain. CBC and CMP shows no concerning abnormalities other than some very mildly elevated liver enzymes. CT scan returned some slight bladder wall thickening but otherwise no abnormalities. No signs of a AAA or kidney stones. This pain may be musculoskeletal in nature since it does get worse with movement. Possibly muscle spasm. It is tender to palpation. Urinalysis shows no concerning abnormalities. At this point we will discharge her. Will prescribe her Flexeril and oxycodone via instymeds. She is agreeable to this plan. Lab Data Labs: Lab Results 04/10/25 04/10/25 Range/Units 03:08 03:47 WBC 4.60 (4.50-11.00) K/uL RBC 4.34 (4.00-5.20) m/uL Hgb 14.1 (12.0-16.0) gm/dL Hct 42.3 (33.0-51.0) % MCV 98 (80-100) fL MCH 33 (26-34) pg MCHC 33 (32-36) gm/dL RDW Coeff of Solange 12.0 (11.5-15.5) % Plt Count 156 (140-440) K/uL Neut % (Auto) 45.7 (42.0-72.0) % Lymph % (Auto) 41.3 (20-44) % Lewis % (Auto) 9.1 (0.0-11.0) % Eos % (Auto) 3.3 (0.0-7.0) % Baso % (Auto) 0.4 (0.0-3.0) % Neut # (Auto) 2.10 (1.7-7.0) K/uL Lymph # (Auto) 1.90 (0.90-2.90) K/uL Lewis # (Auto) 0.40 (0.00-0.90) K/UL Eos # (Auto) 0.15 (0.00-0.50) K/uL Baso # (Auto) 0.02 (0.00-0.30) K/uL Abs Immat Gran (auto) 0.01 (0.00-0.30) K/uL Imm/Tot Granulo (auto) 0.2 % Sodium 142 (135-149) mmol/L Potassium 3.8 (3.6-5.1) mmol/L Chloride 106 (96-114) mmol/L Carbon Dioxide 29 (20-32) mmol/L Anion Gap 7 (7-15) mEq/L BUN 11 (7-30) mg/dL Creatinine 0.7 (0.5-1.5) mg/dL Estimated Creat Clear 49.70 Estimated GFR 94 ml/min Glucose 108 (60-115) mg/dL Calcium 9.0 (8.4-10.6) mg/dL Total Bilirubin 0.7 (0.1-1.5) mg/dL AST 44 H (12-35) U/L ALT 45 H (4-35) U/L Alkaline Phosphatase 69 (40-150) U/L Total Protein 7.1 (6.0-8.3) g/dL Albumin 4.4 (3.3-5.0) g/dL Urine Color Yellow (Yellow) Urine Appearance Clear (Clear) Urine pH 5.5 (5.0-8.5) Ur Specific [place] 1.015 (1.000-1.030) Urine Protein Negative (Negative) Urine Glucose (UA) Negative (Negative) Urine Ketones 1+ A (Negative) Urine Blood Trace-intact A (Negative) Urine Nitrite Negative (Negative) Urine Bilirubin Negative (Negative) Urine Urobilinogen 0.2 (0.2-1.0) Ur Leukocyte Esterase Negative (Negative) Imaging Data CT scan abdomen and pelvis: Attestation: I have reviewed the pertinent imaging results. Radiologist's impression: 1. Distended gallbladder with cholelithiasis. No other sonographic evidence of cholecystitis. 2. Hepatic steatosis. 3. Focal hyperechoic area along the right hepatic dome, which may represent a hemangioma. Dictated by Nish Hawkins MD @ 04/10/2025 3:58:28 AM Discharge Plan Discharge Clinical Impression: Acute right flank pain Patient Disposition: Home, Self-Care Condition: Improved Instructions: Flank Pain (ED) Additional Instructions: Take Tylenol and ibuprofen for your pain along with Flexeril and oxycodone as needed. Just note both Flexeril and oxycodone can increase your fall risk. Be careful while taking them. Return to emergency department for new or worsening symptoms. At this time and seems your pain is musculoskeletal in nature as I do not see any other acute abnormalities. Follow Up/Referrals: Oracio Madden MD [Staff Physician, Internal Medicine] Stand Alone Forms: [facility] Info Instructions
[2025-04-10 03:15] LABS: Basophils Absolute Auto 0.02 K/uL (0.00-0.30); Basophils Percent Auto 0.4 % (0.0-3.0); Eosinophils Absolute Auto 0.15 K/uL (0.00-0.50); Eosinophils Percent Auto 3.3 % (0.0-7.0); Hematocrit 42.3 % (33.0-51.0); Hemoglobin* 14.1 gm/dL (12.0-16.0); Immature Granulocytes Abs Auto 0.01 K/uL (0.00-0.30); Immature Granulocytes Pct Auto 0.2 %; Lymphocytes Percent Auto 41.3 % (20-44); Mean Corpuscular HGB Conc 33 gm/dL (32-36); Mean Corpuscular Hemoglobin 33 pg (26-34); Mean Corpuscular Volume 98 fL (80-100); Monocytes Percent Auto 9.1 % (0.0-11.0); Neutrophils Percent Auto 45.7 % (42.0-72.0); Platelet Count* 156 K/uL (140-440); Red Blood Count 4.34 m/uL (4.00-5.20)
[2025-04-10 03:17] LABS: Slide Review Reflex No
[2025-04-10 03:29] LABS: Albumin* 4.4 g/dL (3.3-5.0); Chloride* 106 mmol/L (96-114); Sodium* 142 mmol/L (135-149)
[2025-04-10 03:30] LABS: Potassium* 3.8 mmol/L (3.6-5.1)
[2025-04-10] MEDS: KETOROLAC 15 MG/ML inj IVP (03:30)
[2025-04-10 03:32] LABS: Alanine Aminotransferase* 45 U/L (4-35); Alkaline Phosphatase* 69 U/L (40-150); Anion Gap 7 mEq/L (7-15); Aspartate Amino Transferase* 44 U/L (12-35); Bilirubin Total* 0.7 mg/dL (0.1-1.5); Blood Urea Nitrogen* 11 mg/dL (7-30); Carbon Dioxide* 29 mmol/L (20-32); Creatinine* 0.7 mg/dL (0.5-1.5); Estimated Glomerular Filt Rate 94 ml/min; Total Protein* 7.1 g/dL (6.0-8.3)
[2025-04-10 03:33] LABS: Glucose* 108 mg/dL (60-115)
[2025-04-10 04:00] LABS: Appearance Urine Clear (Clear); Bilirubin Urine Negative (Negative); Blood Urine Trace-intact (Negative); Color Urine Yellow (Yellow); Glucose Urine Negative (Negative); Ketones Urine 1+ (Negative); Specific Gravity Urine 1.015 (1.000-1.030); pH Urine 5.5 (5.0-8.5)
[2025-04-10 04:01] LABS: Leukocyte Esterase Urine Negative (Negative); Nitrite Urine Negative (Negative); Protein Urine Negative (Negative); Urobilinogen Urine 0.2 (0.2-1.0)
[2025-04-10] MEDS: MORPHINE 4 MG/ML INJ IVP (04:26)
[2025-04-10 04:34] LABS: RBC Urine 0-2 (0-2); Squamous Epithelial Cell Urine Few (None-Few); WBC Urine 0-2 (0-5)
== END 2025-04-10 04:46 | disposition home or self-care (01) ==
PROVIDERS: Emergency Provider Student in an Organized Health Care Education/Training Program
DX: R10.9 Unspecified abdominal pain (principal)
CPT/HCPCS: 36415; 74176; 80053; 81001; 85025; 96374; 96375; 99284; J1885; J2270